=== PATIENT | female | born 1955 | race Caucasian/White ===

== ENCOUNTER 2018-01-01 05:06 | Inpatient (IN) ==
[2018-01-01] MEDS ORDERED: Chlorhexidine Gluconate 2% 1 Pack (2 Cloths) TOPICAL ONE (05:33)
[2018-01-01] MEDS ORDERED: Metoprolol Tartrate 25 MG Tablet PO ONE (05:33)
[2018-01-01] MEDS ORDERED: Dexamethasone Inj 20 MG/5 ML Vial IV.PUSH PRN (05:37)
[2018-01-01] MEDS ORDERED: Sodium Chlor 0.9% Inj 40 ML, Bupivacaine Liposo PF 1.3% Inj 20 ML P-ARTICULR SCH ×2 (05:45)
[2018-01-01] MEDS ORDERED: Chlorhexidine 4% Topical 120 APPLIC/120 ML Bottle TOPICAL SCH (05:45)
[2018-01-01] MEDS ORDERED: SODIUM CHLOR 0.9% IV.SIG SCH (06:00)
[2018-01-01] MEDS ORDERED: TRANEXAMIC ACID IV.SIG SCH (06:00)
[2018-01-01] MEDS ORDERED: Vancomycin Inj 1,000 MG in Sodium Chlor 0.9% Inj 250 ML IV.SIG SCH (06:00)
[2018-01-01] MEDS ORDERED: Sodium Chlor 0.9% Inj 500 ML IV.SIG SCH (06:00)
[2018-01-01] MEDS ORDERED: Sodium Chlor 0.9% Inj 250 ML ONE (06:08)
[2018-01-01] MEDS ORDERED: Famotidine PF Inj 20 MG/2 ML Vial ONE (06:19)
[2018-01-01] MEDS ORDERED: fentaNYL Citrate Inj 250 MCG/5 ML Ampul ONE (06:19)
[2018-01-01] MEDS ORDERED: fentaNYL Citrate Inj 100 MCG/2 ML Ampul ONE (06:19)
[2018-01-01] MEDS ORDERED: Neostigmine Inj 5 MG/5 ML Syringe IV.PUSH ONE (06:52)
[2018-01-01] MEDS ORDERED: Glycopyrrolate Inj 1 MG/5 ML Syringe IV.PUSH ONE (06:52)
[2018-01-01] MEDS ORDERED: Lidocaine PF 1% Inj 5 ML Syringe OTHER ONE (06:52)
[2018-01-01] MEDS: ceFAZolin 2 GM Premix Inj 2 GM/50 ML PIGGYBACK IV.SIG SCH ×5 (06:53→19:00)
[2018-01-01] MEDS ORDERED: ALPRAZolam 0.5 MG Tablet PO PRN (07:00)
[2018-01-01] MEDS ORDERED: Post-op Orders (for Pharmacy) OTHER STA (07:03)
[2018-01-01] MEDS ORDERED: HYDROmorphone PF Inj 2 MG/ML Vial IV.PUSH PRN (08:30)
[2018-01-01] MEDS ORDERED: Tranexamic Acid Inj 3,000 MG in Sodium Chlor 0.9% Inj 100 ML P-ARTICULR SCH (08:40)
[2018-01-01] MEDS ORDERED: LINZESS 290 MCG PO SCH (09:00)
--- NOTE | 2018-01-01 09:15 | XR ---
EXAM DATE: 01/01/2018 12:00 AM EDT AGE/SEX: 62 years / Female INDICATIONS: Total right hip replacement. CLINICAL DATA: This is the patient's initial encounter. Patient reports that signs and symptoms have been present for 1 day and indicates a pain score of Nonresponsive. MEDICAL/SURGICAL HISTORY: . Irritable bowel syndrome. Hypertension. . section. Stephanie cystectomy. COMPARISON: None. FINDINGS: 2 magnified C-arm spot views are centered over the hip joint and labeled right. The prosthesis is in good position. No discernible fracture on this limited study without acquisition. CONCLUSION: Total hip prosthesis in good position. Electronically signed by: Pascual Lugo MD 01/01/2018 9:14 AM EDT
[2018-01-01] MEDS ORDERED: *Meperidine Inj 25 MG/ML Vial PERIprocedural Use ONLY ONE (09:20)
[2018-01-01] MEDS ORDERED: *morphine SULFATE 4 MG/ML PERIprocedure ONLY ONE ×3 (09:22→09:50)
[2018-01-01] MEDS: Multivitamin/Minerals Therapeutic Tablet PO SCH ×2 (09:31→21:04)
[2018-01-01] MEDS: Gabapentin 100 MG Capsule PO SCH ×3 (09:32→18:40)
[2018-01-01] MEDS: Senna/Docusate Sodium 8.6/50 MG Tablet PO SCH ×2 (09:32→21:04)
[2018-01-01] MEDS: Duloxetine 60 MG DR Capsule PO SCH (09:36)
[2018-01-01] MEDS: Primidone 50 MG Tablet PO SCH ×2 (09:54→18:40)
[2018-01-01] MEDS ORDERED: HYDROmorphone PF Inj 2 MG/ML Vial ONE (10:00)
--- NOTE | 2018-01-01 10:01 | XR ---
EXAM DATE: 01/01/2018 7:01 AM EDT AGE/SEX: 62 years / Female INDICATIONS: Post-op right hip. CLINICAL DATA: This is the patient's initial encounter. Patient reports that signs and symptoms have been present for 1 day and indicates a pain score of Nonresponsive. MEDICAL/SURGICAL HISTORY: None. . Right Total Hip COMPARISON: None . FINDINGS: 3 views of the pelvis and right hip reveal a total hip prosthesis in good position. No fracture or di slocation. Air is seen within the joint and overlying subcutaneous tissues. CONCLUSION: Total hip prosthesis in good position. Electronically signed by: Pascual Lugo MD 01/01/2018 10:00 AM EDT
--- NOTE | 2018-01-01 12:09 | MP ---
cc: Jules Nick MD DATE OF OPERATION: 01/01/2018 PREOPERATIVE DIAGNOSIS: Right hip osteoarthritis. POSTOPERATIVE DIAGNOSIS: Right hip osteoarthritis. PROCEDURE PERFORMED: Right total hip arthroplasty. SURGEON: Jules Nick MD ROTARY SHEAR CUTTER: RADHA Birch. ANESTHESIA: General. ESTIMATED BLOOD LOSS: 300 mL. COMPLICATIONS: None. IMPLANTS USED: DePuy Corail, size 12 press-fit standard offset femoral stem, size 52 solid [place] Gription cup, size 36 mm highly cross-linked polyethylene neutral liner, 36 mm ceramic head + 8.5 neck. JUSTIFICATION: This patient is a 62-year-old female with history of severe osteoarthritis involving the right hip joint. She has severe disabling pain, standing, walking, ambulation, weightbearing and severe pain at rest. It does interfere with activities of daily living. She has failed greater than 3 months of nonoperative conservative treatment to include medications and therapy, injections, ambulatory assists aids, home exercise program, activity modification, weight loss. X-rays of the right hip reveal severe osteoarthritis with joint space narrowing, subchondral sclerosis, subchondral cyst, osteophyte formation and subluxation. The patient was counseled as to the risks, benefits and alternatives to a total hip arthroplasty. The risks were discussed which include, but are not limited to anesthesia, bleeding, infection, damage to nerves and blood vessels, pain, stiffness, fracture, dislocation, leg length discrepancy, blood clots, and even . The patient benefits and the risks and wished to proceed with surgery. PROCEDURE IN DETAIL: Written consent was obtained. The patient was identified by name, taken to the operating room and placed supine on the operating table. General anesthesia was administered, as well as 2 grams of IV Ancef and 1 gram IV vancomycin. The patient was then carefully transferred onto the Martinez table. The right and left feet were placed in a well-padded traction boots. All bony prominences and pressure points were well padded. The right hip and right lower extremity prepped and draped using isopropyl alcohol, Hibiclens solution and ChloraPrep solution. After a timeout was performed, longitudinal incision was made over the anterior aspect of the right hip. The fascial layer was incised. Dissection was carried over the tensor fascia jesus beneath the rectus femoris to allow exposure of the anterior capsule. A capsulotomy incision was performed and the was used to perform a femoral neck cut. The ____ femoral head and neck component was removed. A 10 blade scalpel was used to excise the labrum. Sequential reaming was began at size 43 and was carried through to a size 52. Subsequently, a solid [place] Gription cup, size 52 mm was implanted in approximately 4 to 5 degrees of abduction and 10 degrees of anteversion. There was good purchase and fixation of insertion of the cup. A screw hole eliminator was placed, followed by the neutral liner. The liner was impacted in place and tested for stability. Attention turned to the femur. The leg was externally rotated, extended and adducted. The capsule was released off the undersurface of the greater trochanter to allow for elevation and lateralization of the femur. A box cutting osteotome was used and entered into the intramedullary canal of the femur was followed by canal finder. Sequential broaching to size 12. Calcar planer was used to plane the calcar. Trial head and neck combinations were evaluated and final components implanted. With the current components the leg achieved external rotation of 70 degrees and extension all they way down to the ground without evidence of anterior instability or impingement. Fluoroscopic imaging showed appropriate implantation of components. Surgical wound was thoroughly irrigated with sterile saline pulse with antibiotic-impregnated solution. The fascial layer was closed with #1 Vicryl suture, subcutaneous layer 2-0 Vicryl suture. Skin was closed with Dermabond. Sterile dressing was applied. The patient tolerated the procedure well. No intraoperative complications noted. George Cohen, physician assistant spa manager certified, was present for the entire procedure to include patient, position and procedure itself. Medical necessity of physician assistant spa manager was indicated in this case due to the complexity of the procedure. He assisted with appropriate manipulation of the leg and retraction of muscle, tendon, bone, neurovascular structures. He assisted with preparation of bone and also implantation of the prosthetic replacement. MD SARAH Philip/rocky/niraj , 09:02 AM , 09:10 AM
[2018-01-01 13:28] VITALS: RESP 18
--- NOTE | 2018-01-01 14:58 | P.CONIM ---
History of Present Illness Service: [facility] hospitalist Consult date: 01/01/18 Requesting Physician: Jules Nick Reason for Consult: Opinion recommendation on treatment of patient's hypertension hyperlipidemi Primary Care Provider: Selena Reyes MD Family Provider: Selena Reyes MD Chief Complaint: Mild right hip pain History of Present Illness: 62-year-old pleasant white female with history of osteoarthritis, depression, anxiety, tremors, hyperlipidemia, hypertension has had long history of right hip pain despite conservative treatment due to osteoarthritis. She has electively underwent a total right total hip arthroplasty today with orthopedic surgery Dr. Nick. She states that due to her irritable bowel disease, she does have times struggle with constipation. She has not seen any blood in the stools or black tarry stools. She is requesting a sleeping pill tonight in case she has difficulty with sleep and recovery. At this time, patient states her pain is controlled. Review of Systems All other systems reviewed negative except as stated in HPI PMFSH - History History Provided By: Patient - Medical History Medical History: Medical History (Last Reviewed 01/01/18 @ 14:54 by Ranjana Bacon MD) Anxiety Arthritis Back pain Bile duct abnormality Depression Diverticulitis Essential tremor High cholesterol History of urinary retention Hypertension Irritable bowel disease Joint pain Neck pain Skin cancer Wears glasses - Surgical History Surgical History: Surgical History (Last Reviewed 01/01/18 @ 14:54 by Ranjana Bacon MD) History of History of cholecystectomy - Family History Family History: Family History (Last Updated 01/01/18 @ 14:54 by Ranjana Bacon MD) Other Family history unknown - Social History I have reviewed the patient's Social History: Yes - Tobacco History Second Hand Smoke Exposure: No Smoking Status: Never smoker - Alcohol History How Often Do You Have a Drink Containing Alcohol: Monthly or less - Substance Use History Substance History: No History of Abuse - Travel History Recent Travel in the [place] Within the Last 8 Weeks: No Recent Travel Out of the Country Within the Last 8 Weeks: No - Immunization History Tetanus Immunization: <5 Years Hx Influenza Vaccine This Season: No Medications and Allergies Active Medications: Active Medications Hydrocodone Bitart/Acetaminophen ([place] 7.5/325) 1 tab PO Q4H PRN PRN Reason: PAIN LESS THAN 5 ON SCALE Hydrocodone Bitart/Acetaminophen ([place] 7.5/325) 2 tab PO Q6H PRN PRN Reason: PAIN SCALE 5 TO 10 Last Admin: 01/01/18 13:07 Dose: 2 tab Al Hydroxide/Mg Hydroxide (Milk Of Adarsh Ochoa) 30 ml PO BID PRN PRN Reason: Mild Constipation Alprazolam (Xanax) 0.5 mg PO BID PRN PRN Reason: Anxiety Aspirin (Aspirin Chew) 81 mg PO BID [facility] Last Admin: 01/01/18 09:36 Dose: Not Given Chlorhexidine Gluconate (Hibiclens 4% Topical) 1 applicatio TOPICAL ONCE [facility] Stop: 01/05/18 05:44 Last Admin: 01/01/18 06:21 Dose: 1 applicatio Sodium Chloride 40 ml/ (Bupivacaine Liposome 20 ml) 0 ml P-ARTICULR ONCE [facility] Stop: 01/01/18 15:00 Last Admin: 01/01/18 07:47 Dose: 60 bag Cyclobenzaprine HCl (Flexeril) 5 mg PO HS [facility] Dexamethasone Sodium Phosphate (Decadron Inj) 10 mg IV.PUSH DEPLOYMENT MANAGER PRN PRN Reason: PRE-OP DEPLOYMENT MANAGER TO OR Stop: 01/01/18 22:00 Last Admin: 01/01/18 06:20 Dose: 10 mg Diphenhydramine HCl (Benadryl) 25 mg PO Q6H PRN PRN Reason: ITCHING Duloxetine HCl (Cymbalta) 60 mg PO DAILY [facility] Last Admin: 01/01/18 09:36 Dose: Not Given Gabapentin (Neurontin) 100 mg PO TID [facility] Last Admin: 01/01/18 13:08 Dose: 100 mg Hydrochlorothiazide (Microzide) 12.5 mg PO DAILY [facility] Last Admin: 01/01/18 09:32 Dose: Not Given Hydromorphone HCl (Dilaudid Pf Inj) 1 mg IV.PUSH Q3H PRN PRN Reason: BREAKTHROUGH PAIN Lactated Ringer's (Lr 1000 Ml Inj) 1,000 mls @ 30 mls/hr IV.SIG .Q24H [facility] Stop: 01/02/18 05:44 Last Admin: 01/01/18 06:20 Dose: 30 mls/hr Sodium Chloride (Ns Inj) 500 mls @ 30 mls/hr IV.SIG .Q10H [facility] Last Admin: 01/01/18 06:01 Dose: Not Given Vancomycin HCl 1,000 mg/ (Sodium Chloride) 250 mls @ 250 mls/hr IV.SIG DEPLOYMENT MANAGER [facility] Stop: 01/04/18 05:39 Last Infusion: 01/01/18 08:28 Dose: Infused Cefazolin Sodium/Dextrose (Ancef 2 Gm Premix Inj) 2 gm in 50 mls @ 100 mls/hr IV.SIG DEPLOYMENT MANAGER [facility] Stop: 01/05/18 05:59 Last Admin: 01/01/18 13:08 Dose: 100 mls/hr Cefazolin Sodium/Dextrose (Ancef 2 Gm Premix Inj) 2 gm in 50 mls @ 100 mls/hr IV.SIG Q6H [facility] Stop: 01/02/18 01:29 Lactated Ringer's (Lr 1000 Ml Inj) 1,000 mls @ 80 mls/hr IV.CONT .[id number] [facility] Last Admin: 01/01/18 09:48 Dose: 80 mls/hr Influenza Virus Vaccine (Fluarix (Quad) Vaccine Inj) 0.5 ml IM .ONCE ONE Stop: 01/02/18 09:01 Lactulose (Lactulose Liq) 30 ml PO DAILY PRN PRN Reason: SEVERE CONSITIPATION Miscellaneous Information (Misc Nursing Information) 0 each OTHER UNSCH PRN PRN Reason: SEE LABEL COMMENTS Stop: 01/02/18 09:14 Multivitamins/Minerals (Theragran-M) 1 tab PO BID [facility] Stop: 03/02/18 08:59 Last Admin: 01/01/18 09:31 Dose: Not Given Ondansetron HCl (Zofran Inj) 4 mg IV.PUSH Q6H PRN PRN Reason: NAUSEA OR VOMITING Pt Own Med : Linzess (Linaclotide) 290 Mcg 0 each PO DAILY [facility] Povidone Iodine (Betadine 7.5% Scrub) 1 applicatio TOPICAL ONCE [facility] Stop: 01/05/18 05:59 Last Admin: 01/01/18 06:21 Dose: 1 applicatio Pravastatin Sodium (Pravachol) 40 mg PO DAILY [facility] Last Admin: 01/01/18 09:31 Dose: Not Given Primidone (Mysoline) 50 mg PO Q12H [facility] Last Admin: 01/01/18 09:54 Dose: Not Given Senna/Docusate Sodium (Gaviota-Colace) 1 tab PO BID [facility] Last Admin: 01/01/18 09:32 Dose: Not Given Sennosides (Senokot) 17.2 mg PO BID PRN PRN Reason: Moderate Constipation Sodium Chloride (Ns Flush) 2 ml IV.FLUSH BID [facility] Last Admin: 01/01/18 09:32 Dose: Not Given Sodium Chloride (Ns Flush) 2 ml IV.FLUSH PRN PRN PRN Reason: FLUSH AFTER USING IV ACCESS Zolpidem Tartrate (Ambien) 5 mg PO HS PRN PRN Reason: INSOMNIA Allergies Allergy/AdvReac Type Severity Reaction Status Date / Time adhesive tape Allergy Rash Verified 01/01/18 05:39 Home Medications Medication Instructions Recorded Confirmed Type alprazolam [Xanax] 0.5 mg PO BID PRN 12/14/17 01/01/18 History aspirin [Aspirin Low Dose] 81 mg PO DAILY 12/14/17 01/01/18 History cinnamon bark [Cinnamon] 1 cap PO DAILY 12/14/17 01/01/18 History conjugated estrogens [Premarin] 0.625 mg PO DAILY 12/14/17 01/01/18 History cyanocobalamin (vitamin B-12) 100 mcg PO DAILY 12/14/17 01/01/18 History [Vitamin B-12] cyclobenzaprine 5 mg PO HS 12/14/17 01/01/18 History dicyclomine 10 mg PO QID 12/14/17 01/01/18 History duloxetine [Cymbalta] 60 mg PO DAILY 12/14/17 01/01/18 History gabapentin 100 mg PO TID 12/14/17 01/01/18 History hydrochlorothiazide 12.5 mg PO DAILY 12/14/17 01/01/18 History lactulose 10 g PO TID PRN 12/14/17 01/01/18 History linaclotide [Linzess] 290 mcg PO DAILY 12/14/17 01/01/18 History lovastatin 40 mg PO DAILY 12/14/17 01/01/18 History primidone 50 mg PO Q12H 12/14/17 01/01/18 History tramadol 50 mg PO Q6H PRN 12/14/17 01/01/18 History turmeric root extract 500 mg PO DAILY 12/14/17 01/01/18 History Exam Vital signs: Vital Signs 01/01/18 05:47 01/01/18 09:15 01/01/18 09:30 Temperature 98.5 F 97.9 F Pulse Rate 87 87 71 Respiratory Rate 18 14 12 Blood Pressure 165/100 H 136/63 125/58 L Pulse Oximetry 96 95 93 L 01/01/18 09:45 01/01/18 10:00 01/01/18 10:05 Temperature Pulse Rate 72 67 Respiratory Rate 12 12 12 Blood Pressure 121/60 113/55 L Pulse Oximetry 93 L 93 L 01/01/18 10:15 01/01/18 13:27 Temperature 98.1 F 97.2 F L Pulse Rate 74 68 Respiratory Rate 14 18 Blood Pressure 106/59 L 102/55 L Pulse Oximetry 97 99 Intake & Output 12/31/17 01/01/18 01/01/18 18:59 06:59 18:59 Intake Total 1599.7 / 1599.7 Output Total 300 / 300 Balance 1299.7 / 1299.7 Weight 84.6 kg 90.8 kg Intake: IV 412.7 / 412.7 Cyklokapron Inj 1,270 MG In NS 112.7 / 112.7 Inj 100 ML @ 200 mls/hr IV.SIG ONCE [facility] Rx#:[id number] Vancomycin Inj 1,000 MG In NS 250 / 250 Inj 250 ML @ 250 mls/hr IV.SIG DEPLOYMENT MANAGER [facility] Rx#:[id number] Ancef 2 GM Premix Inj 2 gm In 50 / 50 50 ml @ 100 mls/hr IV.SIG DEPLOYMENT MANAGER [facility] Rx#:[id number] Anesthesia Amount 1187 / 1187 Output: Estimated Blood Loss 300 / 300 Other: Date of Last Bowel Movement 12/31/17 Weight On Admission 84.6 kg Narrative: GENERAL: Well-nourished well-developed white female in no acute distress sitting up in a chair. Normoactive bowel sounds SKIN: Warm and dry. HEAD: Atraumatic. Normocephalic. EYES: Pupils equal and round. No scleral icterus. No injection or drainage. ENT: No nasal bleeding or discharge. Mucous membranes pink and moist. NECK: Trachea midline. No JVD. CARDIOVASCULAR: Regular rate and rhythm. RESPIRATORY: No accessory muscle use. Clear to auscultation. Breath sounds equal bilaterally. GASTROINTESTINAL: Abdomen soft, non-tender, nondistended. Hepatic and splenic margins not palpable. MUSCULOSKELETAL: Extremities without clubbing, cyanosis, or edema. Bilateral SCDs NEUROLOGICAL: Awake and alert. No obvious cranial nerve deficits. Motor grossly within normal limits. Normal speech. PSYCHIATRIC: Appropriate mood and affect; insight and judgment normal. Results - Labs Labs: Laboratory Results - last 24 hr 01/01/18 06:05 Blood Type A Negative Blood Type Recheck Required Antibody Screen Negative - Imaging Impressions Hip X-Ray 01/01/18 00:00 CONCLUSION: Total hip prosthesis in good position. Hip X-Ray 01/01/18 07:01 CONCLUSION: Total hip prosthesis in good position. Assessment and Plan - Plan 62-year-old white female with a history of hypertension, hyperlipidemia, osteoarthritis who 1. Status post right total knee arthroplastycontinue postoperative care per orthopedic surgery Dr. Nick, pain control, physical therapy, bowel regimen. 2. Hypertension, chronic essentialcontinue with HCTZ. Further recommendations based on blood pressure trends. 3. Hyperlipidemiaresume home statin. 4. Essential tremor history chronicresume primodone 5. DVT prophylaxisaspirin per orthopedic surgery Thank you for this consultation.
[2018-01-01] MEDS ORDERED: Zolpidem Tartrate 5 MG Tablet PO PRN (21:00)
[2018-01-02] MEDS: ceFAZolin 2 GM Premix Inj 2 GM/50 ML PIGGYBACK IV.SIG SCH (00:22)
[2018-01-02 05:22] LABS: Hematocrit 28.7 % (35.0-46.0); Hemoglobin 9.9 gm/dL (11.6-15.3)
[2018-01-02 05:40] LABS: Anion Gap 8 meq/L (5-15); Blood Urea Nitrogen 8 mg/dL (7-18); Calcium 8.3 mg/dL (8.5-10.1); Carbon Dioxide 30.4 meq/L (21.0-32.0); Chloride 91 meq/L (98-107); Glomerular Filtration Rate Greater Than 89 mL/min (>89); Glucose,Random 93 mg/dL (74-106); Potassium 4.2 meq/L (3.5-5.1); Sodium 129 meq/L (136-145)
[2018-01-02] MEDS: Primidone 50 MG Tablet PO SCH (06:30)
--- NOTE | 2018-01-02 08:44 | P.PNOP ---
Subjective Interval history: pain controlled with pain meds. Physical Exam Vital signs: Vital Signs 01/01/18 09:15 01/01/18 09:30 01/01/18 09:45 Temperature 97.9 F Pulse Rate 87 71 72 Respiratory Rate 14 12 12 Blood Pressure 136/63 125/58 L 121/60 Pulse Oximetry 95 93 L 93 L 01/01/18 10:00 01/01/18 10:05 01/01/18 10:15 Temperature 98.1 F Pulse Rate 67 74 Respiratory Rate 12 12 14 Blood Pressure 113/55 L 106/59 L Pulse Oximetry 93 L 97 01/01/18 13:27 01/01/18 16:50 01/01/18 20:00 Temperature 97.2 F L 97.2 F L 97.6 F Pulse Rate 68 66 62 Respiratory Rate 18 18 18 Blood Pressure 102/55 L 106/55 L 112/58 L Pulse Oximetry 99 100 99 01/02/18 00:00 01/02/18 04:00 Temperature 98.0 F 98.6 F Pulse Rate 65 61 Respiratory Rate 18 18 Blood Pressure 113/61 118/62 Pulse Oximetry 99 99 Intake & Output 01/01/18 01/02/18 01/02/18 18:59 06:59 18:59 Intake Total 1939.7 / 1939.7 550 / 550 Output Total 600 / 600 Balance 1339.7 / 1339.7 550 / 550 Weight 90.8 kg 92.3 kg Intake: IV 512.7 / 512.7 550 / 550 LR 1000 mL Inj 1,000 ML @ 80 400 / 400 mls/hr IV.CONT .[id number] [facility] Rx# :[id number] Cyklokapron Inj 1,270 MG In NS 112.7 / 112.7 Inj 100 ML @ 200 mls/hr IV.SIG ONCE [facility] Rx#:[id number] Vancomycin Inj 1,000 MG In NS 250 / 250 Inj 250 ML @ 250 mls/hr IV.SIG HOUSEKEEPER MANAGER [facility] Rx#:[id number] Ancef 2 GM Premix Inj 2 gm In 150 / 150 150 / 150 50 ml @ 100 mls/hr IV.SIG Q6H [facility] Rx#:[id number] Oral 240 / 240 Anesthesia Amount 1187 / 1187 Output: Urine 300 / 300 Estimated Blood Loss 300 / 300 Other: # Voids 4 Date of Last Bowel Movement 12/31/17 12/31/17 Narrative: in bed, nad dressing c/d/i neg homadorina nvi Results - Labs CBC & Chem 7: 01/02/18 03:51 01/02/18 03:51 Laboratory Results - last 24 hr 01/02/18 01/02/18 03:51 03:51 Hgb 9.9 L Hct 28.7 L Sodium 129 L Potassium 4.2 Chloride 91 L Carbon Dioxide 30.4 Anion Gap 8 BUN 8 Creatinine 0.62 Estimated GFR Greater than 89 Random Glucose 93 Calcium 8.3 L - Imaging Impressions Hip X-Ray 01/01/18 00:00 CONCLUSION: Total hip prosthesis in good position. Hip X-Ray 01/01/18 07:01 CONCLUSION: Total hip prosthesis in good position. Assessment and Plan - Ortho Post Op Day # 1 - Assessment and Plan s/p R YULISSA anterior approach wbat ok to maintain dressing unless saturated asa 81 d/c planning home with hhc and pt - cleared today if does well in pt f/up dr. dang 2 weeks
--- NOTE | 2018-01-02 08:45 | P.DCO ---
- Physical Therapy Physical Therapy: Gait training, Transfer training, bed to chair Hip: Total hip, Protocol: Right Right Lower Extremity Weight Bearing: Weight bearing as tolerated - Nursing RN: 3 days/week x 2 weeks Nursing: Dressing changes Dressing changes: Do not change dressing - Certification Need for Home Health services: I have seen patient Rin Nichols on 01/02/18. My clinical findings support the need for the requested home health care services because: Need for Home Health Services: Limited ability to care for self, High risk of falls Homebound Certification: I certify that my clinical findings support that this patient is homebound because: Homebound Certification: Post-op weakness, Unsteady gait/balance
[2018-01-02] MEDS ORDERED: Influenza (Quadrivalent) Vaccine 0.5 ML Syringe IM ONE (09:00)
[2018-01-02] MEDS: Duloxetine 60 MG DR Capsule PO SCH (09:12)
[2018-01-02] MEDS: Multivitamin/Minerals Therapeutic Tablet PO SCH (09:12)
[2018-01-02] MEDS: Gabapentin 100 MG Capsule PO SCH ×2 (09:12→12:07)
[2018-01-02] MEDS: Senna/Docusate Sodium 8.6/50 MG Tablet PO SCH (09:15)
--- NOTE | 2018-01-02 12:02 | P.PNIM ---
Subjective Interval history: Overall pain control. No concerns overnight. Physical Exam Vital signs: Vital Signs 01/01/18 13:27 01/01/18 16:50 01/01/18 20:00 Temperature 97.2 F L 97.2 F L 97.6 F Pulse Rate 68 66 62 Respiratory Rate 18 18 18 Blood Pressure 102/55 L 106/55 L 112/58 L Pulse Oximetry 99 100 99 01/02/18 00:00 01/02/18 04:00 01/02/18 08:00 Temperature 98.0 F 98.6 F 98.2 F Pulse Rate 65 61 67 Respiratory Rate 18 18 18 Blood Pressure 113/61 118/62 116/57 L Pulse Oximetry 99 99 92 L Intake & Output 01/01/18 01/02/18 01/02/18 18:59 06:59 18:59 Intake Total 1939.7 / 1939.7 550 / 550 Output Total 600 / 600 Balance 1339.7 / 1339.7 550 / 550 Weight 90.8 kg 92.3 kg Intake: IV 512.7 / 512.7 550 / 550 LR 1000 mL Inj 1,000 ML @ 80 400 / 400 mls/hr IV.CONT .[id number] [facility] Rx# :[id number] Cyklokapron Inj 1,270 MG In NS 112.7 / 112.7 Inj 100 ML @ 200 mls/hr IV.SIG ONCE [facility] Rx#:[id number] Vancomycin Inj 1,000 MG In NS 250 / 250 Inj 250 ML @ 250 mls/hr IV.SIG EMPLOYMENT SPECIALIST [facility] Rx#:[id number] Ancef 2 GM Premix Inj 2 gm In 150 / 150 150 / 150 50 ml @ 100 mls/hr IV.SIG Q6H [facility] Rx#:[id number] Oral 240 / 240 Anesthesia Amount 1187 / 1187 Output: Urine 300 / 300 Estimated Blood Loss 300 / 300 Other: # Voids 4 Date of Last Bowel Movement 12/31/17 12/31/17 12/31/17 Narrative: GENERAL: This is a well-nourished, well-developed patient, in no apparent distress. CARDIOVASCULAR: Regular rate and rhythm RESPIRATORY: Clear to auscultation. Breath sounds equal bilaterally. No wheezes , rales, or rhonchi. GASTROINTESTINAL: Abdomen soft, non-tender, nondistended. Normal active bowel sounds MUSCULOSKELETAL: Right hip bandage clean dry and intact NEURO: Alert & Oriented x4 to person, place, time, situation. Moves all ext x4 Results - Labs CBC & Chem 7: 01/02/18 03:51 01/02/18 03:51 Laboratory Results - last 24 hr 01/02/18 01/02/18 03:51 03:51 Hgb 9.9 L Hct 28.7 L Sodium 129 L Potassium 4.2 Chloride 91 L Carbon Dioxide 30.4 Anion Gap 8 BUN 8 Creatinine 0.62 Estimated GFR Greater than 89 Random Glucose 93 Calcium 8.3 L Assessment and Plan - Plan 62-year-old white female with a history of hypertension, hyperlipidemia, osteoarthritis who 1. Status post operative day #1 right total knee arthroplastycontinue postoperative care per orthopedic surgery Dr. Nick, pain control, physical therapy, bowel regimen. 2. Hypertension, chronic essentialcontinue with HCTZ. Overall blood pressure controlled. 3. Hyperlipidemiaresume home statin. 4. Essential tremor history chronicresume primodone 5. DVT prophylaxisaspirin per orthopedic surgery Discharge Planning: Possible discharge home with home health care today if patient does well with physical therapy per orthopedic surgery.
[2018-01-02 12:19] VITALS: BP 100/59; PULSE 65; TEMP 97.4; O2SAT 96
--- NOTE | 2018-01-23 13:15 | MD ---
cc: Jules Nick MD DATE OF DISCHARGE: 01/02/2018 ADMITTING DIAGNOSIS: Severe degenerative osteoarthritis, right hip. DISCHARGE DIAGNOSIS: Severe degenerative osteoarthritis, right hip. HISTORY OF PRESENT ILLNESS: Ms. Nichols is a 62-year-old female who [facility] for evaluation by Dr. Jules Nick regarding progressive right hip pain. The patient states the pain is a severe aching sensation, aggravated by weightbearing activities. She has no alleviating factors, although in the past she has tried medications, assistive devices, physical therapy, home exercise program without relief of symptoms. She does have x-ray evidence of severe degenerative osteoarthritis of the right hip. While in the office, the patient was counseled on her diagnosis and treatment options. Risks, benefits, and indications, alternatives discussed; patient did elect to proceed with surgical intervention to include a right total hip arthroplasty. DATE OF SURGERY: 01/01/2018, right total hip arthroplasty, anterior approach. POSTOP: After surgery, the patient was admitted to [facility] where she received appropriate medical management, pain control, DVT prophylaxis, as well as physical therapy. DISCHARGE. Once being discharged from the hospital, patient is cleared to go home where she will receive home healthcare and home physical therapy. She is in stable condition. She may weight bear as tolerated. She has been instructed in wound care management. She has been provided prescriptions for pain control and DVT prophylactic medication. She has also been provided a followup appointment approximately 2 weeks from her date of surgery. The patient has asked appropriate questions, which have been answered. The patient has been discharged. Dictated by RADHA Raya MD SARAH Philip/radha , 03:14 PM , 03:20 PM
== END 2018-01-02 14:05 | disposition home health service (06) ==
LOC: HSDI 05:06 → N06 10:52
PROVIDERS: ADMIT Orthopaedic Surgery Sports Medicine; ATTEND Orthopaedic Surgery Sports Medicine